=== PATIENT | female | born 1950 | race Caucasian/White ===

== ENCOUNTER 2017-05-19 | Inpatient (IN) | payer OTHER, MEDICARE ==
[2017-05-19] VITALS (7 sets, daily range): BP systolic 124–148; BP diastolic 58–71; PULSE 88–105; RESP 16–20; TEMP 95–99.9; O2SAT 96–99
[~2017-05-19] VITALS: Ht 172.7 cm; Wt 78.7 kg
[~2017-05-19] MED LIST: DEXTROSE 50% IN WATER 50 ML VIAL(D50) IV PUSH PRN; GLUCAGON 1 MG/ML VIAL OTHER PRN; HEPARIN-D5W 25,000 U/250 ML 250 ML IV PRN; METF500T PO; NALOXONE HCL 0.4 MG/ML AMP IV PUSH PRN; SODIUM CHLORIDE 0.9% FLUSH 10 ML FLUSH IV FLUSH PRN
[2017-05-19] MEDS ORDERED: HEPARIN 25,000 UNITS-D5W 250 ML - PREMIX IV SCH (01:00)
[2017-05-19] MEDS: LIDOCAINE VISCOUS 2% SOLN 15 ML UDC SWISH-SPIT PRN (06:20)
[2017-05-19 07:16] LABS: APTT (PATIENT) 55.3 SEC (24.3-30.1)
[2017-05-19 07:23] LABS: AUTOMATED NEUTROPHIL # 11.5 TH/MM3 (1.8-7.7); BASOPHIL # 0.1 TH/MM3 (0-0.2); BASOPHIL % 0.7 % (0.0-2.0); EOSINOPHIL # 0.1 TH/MM3 (0-0.4); EOSINOPHIL % 0.5 % (0.0-4.0); HEMATOCRIT 38.5 % (35.0-46.0); LYMPH % 19.3 % (9.0-44.0); LYMPHOCYTE # 3.1 TH/MM3 (1.0-4.8); MEAN CELL VOLUME 84.3 FL (80.0-100.0); MEAN CORPUSCULAR HEMOGLOBIN 27.6 PG (27.0-34.0); MEAN CORPUSCULAR HGB CONC 32.7 % (32.0-36.0); MONO % 9.2 % (0.0-8.0); NEUT % 70.3 % (16.0-70.0); PLATELET COUNT 159 TH/MM3 (150-450); RED BLOOD COUNT 4.57 MIL/MM3 (4.00-5.30); RED CELL DISTRIBUTION WIDTH 12.7 % (11.6-17.2); WHITE BLOOD COUNT 16.3 TH/MM3 (4.0-11.0)
[2017-05-19 07:24] LABS: HEMO FLAGS AUTO DIFF
[2017-05-19 07:35] LABS: BICARBONATE 24.4 MEQ/L (21.0-32.0); POTASSIUM 3.5 MEQ/L (3.5-5.1)
[2017-05-19 07:57] LABS: SCAN/DIFF AUTO DIFF CONFIRMED
[2017-05-19] MEDS: INSULIN ASPART SUPPLEMENTAL SCALE SQ SCH ×4 (08:00→21:00)
[2017-05-19] MEDS: SODIUM CHLORIDE 0.9% FLUSH 10 ML FLUSH IV FLUSH SCH ×2 (09:15→21:29)
--- NOTE | 2017-05-19 13:23 | HHI.HP ---
HPI Service [facility] Primary Care Physician Unknown Admission Diagnosis Diagnoses: (1) Sepsis Diagnosis: Principal (2) Hemoptysis Diagnosis: Principal (3) Bilateral pulmonary embolism Diagnosis: Principal (4) Strep pharyngitis Diagnosis: Principal (5) Leukocytosis Diagnosis: Principal (6) Diabetes Diagnosis: Secondary Chief Complaint: Coughing blood Travel History International Travel<30 Days: No Contact w/Intl Traveler <30 Da: No Traveled to Known Affected Are: No History of Present Illness Written by Saurabh Chong, acting as scribe for Dr. Valladares on 05/19/17 at 13: 15. 67-year-old female with known history of diabetes who presented to hospital because of hemoptysis. Patient states that over 4 weeks now she is being treated for strep throat in which she originally started with fever, chills. She was diagnosed with strep throat and started on amoxicillin. She finished full dose amoxicillin and did not get any better so her doctor started her on Cipro and she finished a week's course of that antibiotic. He completed that about a week ago. She has had a cough and during the night she coughed in the tissue in a garbage can. When she woke up in the morning she noticed that the tissue was covered in blood. Because of that reason she came to the ER for evaluation. Patient had workup done with CT scan of the chest which that show very small bilateral pulmonary emboli. She denies any shortness of breath, chest pain, dyspnea on exertion. She is asymptomatic for pulmonary emboli at this time. However she does have persistent strep pharyngitis with findings consistent with sepsis. Patient was started on heparin IV by ER physician and transferred to [place] for continued management. Review of Systems Constitutional: COMPLAINS OF: Fever, Chills Ears, nose, mouth, throat: COMPLAINS OF: Throat pain Respiratory: COMPLAINS OF: Cough, Hemoptysis Except as stated in HPI: all other systems reviewed are Neg Past Family Social History Past Medical History Diabetes Past Surgical History Partial hysterectomy Reported Medications Reported Meds & Active Scripts Active Reported Metformin (Metformin HCl) 500 Mg Tab 500 Mg PO DAILY With a meal Allergies: Coded Allergies: No Known Allergies (Unverified , 05/18/17) Family History Reviewed is significant for diabetes, enlarged heart. Social History Patient denies any tobacco, alcohol or illicit drugs Physical Exam Vital Signs Vital Signs Date Time Temp Pulse Resp B/P (MAP) Pulse Ox O2 Delivery O2 Flow Rate FiO2 05/19/17 08:00 97.8 98 16 124/63 (83) 97 05/19/17 04:00 99.2 95 20 136/71 (92) 97 05/19/17 00:37 99.9 105 20 148/69 (95) 99 05/19/17 00:36 101 Physical Exam GENERAL: Well-developed, well-nourished, in no acute distress. alert and orientated HEENT: Head is normocephalic without any lesions or masses noted. Facial features are symmetric. Eyes: Pupils equal round reactive to light. Extraocular muscles are intact. Conjunctivae were clear. Oropharyngeal: Posterior pharynx does have bilateral erythema with cryptic exudates noted mainly on the left. NECK: Supple with anterior cervical chain lymphadenopathy CARDIAC: Regular rhythm, regular rate. S1/S2 are heard. No murmurs gallops or rubs. LUNGS: Clear to auscultation bilaterally. No wheeze, rhonchi or rales. No use of accessory muscles on inspiration or expiration. ABDOMEN: Soft, nontender. Nondistended. Bowel sounds heard in all 4 quadrants. No organomegaly or masses. Negative rebound, negative guarding EXTREMITIES: No edema, pulses are equal bilaterally. No cyanosis or clubbing NEUROLOGY: Mood and affect appear appropriate. Cranial nerves II through XII grossly intact. Muscle strength 5/5 in upper and lower extremities bilaterally. Deep tendon reflexes are 2+ in upper and lower extremities bilaterally. Laboratory Laboratory Tests Test 05/19/17 05:17 White Blood Count 16.3 Red Blood Count 4.57 Hemoglobin 12.6 Hematocrit 38.5 Mean Corpuscular Volume 84.3 Mean Corpuscular Hemoglobin 27.6 Mean Corpuscular Hemoglobin Concent 32.7 Red Cell Distribution Width 12.7 Platelet Count 159 Mean Platelet Volume 10.2 Neutrophils (%) (Auto) 70.3 Lymphocytes (%) (Auto) 19.3 Monocytes (%) (Auto) 9.2 Eosinophils (%) (Auto) 0.5 Basophils (%) (Auto) 0.7 Neutrophils # (Auto) 11.5 Lymphocytes # (Auto) 3.1 Monocytes # (Auto) 1.5 Eosinophils # (Auto) 0.1 Basophils # (Auto) 0.1 CBC Comment AUTO DIFF Differential Comment AUTO DIFF CONFIRMED Activated Partial Thromboplast Time 55.3 Blood Urea Nitrogen 11 Creatinine 0.49 Random Glucose 120 Calcium Level 9.3 Sodium Level 132 Potassium Level 3.5 Chloride Level 96 Carbon Dioxide Level 24.4 Anion Gap 12 Estimat Glomerular Filtration Rate 126 Date/Time Source Procedure Growth Status 05/19/17 06:08 Throat Group A Streptococcus Screen ([facility]) - Final Pos For Grp A Strep Antigen Complete Result Diagram: 05/19/1751605/19/17516 Septic Shock Reassessment Heart: Regular rate and rhythm Lungs: Clear Skin: Warm, Pelzer Peripheral Pulses: Bounding Right Radial Bounding Left Radial Capillary Refill: Brisk, <2 seconds Caprini VTE Risk Assessment Caprini VTE Risk Assessment: Mod/High Risk (score >= 2) Caprini Risk Assessment Model Point Value = 1 Point Value = 2 Point Value = 3 Point Value = 5 Age 41-60 Minor surgery BMI > 25 kg/m2 Swollen legs Varicose veins or History of unexplained or recurrent spontaneous Oral contraceptives or hormone replacement Sepsis (< 1 month) Serious lung disease, including pneumonia (< 1 month) Abnormal pulmonary function Acute myocardial infarction Congestive heart failure (< 1 month) History of inflammatory bowel disease Medical patient at bed rest Age 61-74 Arthroscopic surgery Major open surgery (> 45 min) Laparoscopic surgery (> 45 min) Malignancy Confined to bed (> 72 hours) Immobilizing plaster cast Central venous access Age >= 75 History of VTE Family history of VTE Factor V Leiden Prothrombin [id number] Lupus anticoagulant Anticardiolipin antibodies Elevated serum homocysteine Heparin-induced thrombocytopenia Other congenital or acquired thrombophilia Stroke (< 1 month) Elective arthroplasty Hip, pelvis, or leg fracture Acute spinal cord injury (< 1 month) Prophylaxis Regimen Total Risk Factor Score Risk Level Prophylaxis Regimen 0-1 Low Early ambulation 2 Moderate Order ONE of the following: *Sequential Compression Device (SCD) *Heparin 5000 units SQ BID 3-4 Higher Order ONE of the following medications: *Heparin 5000 units SQ TID *Enoxaparin/Lovenox 40 mg SQ daily (WT < 150 kg, CrCl > 30 mL/min) *Enoxaparin/Lovenox 30 mg SQ daily (WT < 150 kg, CrCl > 10-29 mL/min) *Enoxaparin/Lovenox 30 mg SQ BID (WT < 150 kg, CrCl > 30 mL/min) AND/OR *Sequential Compression Device (SCD) 5 or more Highest Order ONE of the following medications: *Heparin 5000 units SQ TID (Preferred with Epidurals) *Enoxaparin/Lovenox 40 mg SQ daily (WT < 150 kg, CrCl > 30 mL/min) *Enoxaparin/Lovenox 30 mg SQ daily (WT < 150 kg, CrCl > 10-29 mL/min) *Enoxaparin/Lovenox 30 mg SQ BID (WT < 150 kg, CrCl > 30 mL/min) AND *Sequential Compression Device (SCD) Assessment and Plan Assessment and Plan Sepsis Patient meets criteria with leukocytosis, tachycardia, strep pharyngitis Patient started on Ancef, patient does have history of recent amoxicillin use and Cipro with persistent strep pharyngitis. Patient will need IV medications this time due to failed oral medication to prevent life-threatening complications from strep pharyngitis. Bilateral small pulmonary emboli with presenting hemoptysis Patient continued on heparin IV Anticipate conversion to Eliquis, Xarelto or Coumadin tomorrow Diabetes Accu-Cheks with sliding scale insulin DVT prevention Patient on heparin IV This note was transcribed by yousuf NORRIS. I, Dr. Shannan Valladares personally performed the history, physical exam, and medical decision making; and confirmed the accuracy of the information in the transcribed note. Authenticated by Dr. Shannna Valladares on 05/19/17 at 13:15. Physician Certification 2 Midnight Certification Type: Admission for Inpatient Services Order for Inpatient Services The services are ordered in accordance with Medicare regulations or non- Medicare payer requirements, as applicable. In the case of services not specified as inpatient-only, they are appropriately provided as inpatient services in accordance with the 2-midnight benchmark. Estimated LOS (days): 2 days is the estimated time the patient will need to remain in the hospital, assuming treatment plan goals are met and no additional complications. Post-Hospital Plan: Not yet determined Problem Qualifiers (1) Diabetes: Qualified Codes: E11.8 - Type 2 diabetes mellitus with unspecified complications Saurabh Chong May 19, 2017 13:23 Shannan Valladares MD May 19, 2017 18:25
[2017-05-19] MEDS: ceFAZolin 2 GM PREMIX 50 ML IV SCH ×2 (14:57→21:28)
[2017-05-19 17:11] LABS: APTT (PATIENT) 44.6 SEC (24.3-30.1)
[2017-05-20] VITALS (8 sets, daily range): BP systolic 107–146; BP diastolic 58–70; PULSE 72–92; RESP 13–21; TEMP 93.3–99.4; O2SAT 97–99
[2017-05-20] MEDS: LIDOCAINE VISCOUS 2% SOLN 15 ML UDC SWISH-SPIT PRN (05:25)
[2017-05-20] MEDS: ceFAZolin 2 GM PREMIX 50 ML IV SCH ×3 (05:25→20:46)
[2017-05-20 06:04] LABS: APTT (PATIENT) 47.6 SEC (24.3-30.1)
[2017-05-20 08:41] LABS: POTASSIUM 3.6 MEQ/L (3.5-5.1)
[2017-05-20 08:44] LABS: BICARBONATE 26.6 MEQ/L (21.0-32.0); MAGNESIUM 2.3 MG/DL (1.5-2.5)
[2017-05-20 08:49] LABS: AUTOMATED NEUTROPHIL # 5.2 TH/MM3 (1.8-7.7); BASOPHIL # 0.1 TH/MM3 (0-0.2); EOSINOPHIL # 0.2 TH/MM3 (0-0.4); EOSINOPHIL % 2.1 % (0.0-4.0); HEMATOCRIT 37.6 % (35.0-46.0); HEMO FLAGS DIFF FINAL; LYMPH % 30.6 % (9.0-44.0); LYMPHOCYTE # 2.8 TH/MM3 (1.0-4.8); MEAN CELL VOLUME 83.7 FL (80.0-100.0); MEAN CORPUSCULAR HEMOGLOBIN 27.9 PG (27.0-34.0); MEAN CORPUSCULAR HGB CONC 33.4 % (32.0-36.0); MONO % 10.9 % (0.0-8.0); NEUT % 55.4 % (16.0-70.0); PLATELET COUNT 196 TH/MM3 (150-450); RED BLOOD COUNT 4.49 MIL/MM3 (4.00-5.30); RED CELL DISTRIBUTION WIDTH 11.9 % (11.6-17.2); WHITE BLOOD COUNT 9.3 TH/MM3 (4.0-11.0)
--- NOTE | 2017-05-20 09:15 | HHI.PR ---
Subjective Remarks In bed, says she has sore throat, able to eat some food. No fever or chills. No sob, fever, chest pain . Feels tired. Improved since yesterday. No n/v/d/c. Objective Vitals Vital Signs Date Time Temp Pulse Resp B/P (MAP) Pulse Ox O2 Delivery O2 Flow Rate FiO2 05/20/17 04:00 97.3 81 18 116/63 (80) 97 05/20/17 00:00 99.4 92 20 107/58 (74) 98 05/19/17 21:00 89 05/19/17 20:00 98.2 88 20 147/70 (95) 97 05/19/17 16:00 95.0 91 130/58 (82) 96 I/O 05/19/17 05/19/17 05/19/17 05/20/17 05/20/17 05/20/17 07:00 15:00 23:00 07:00 15:00 23:00 Intake Total 720 ml 294 ml Output Total 550 ml Balance 720 ml -550 ml 294 ml Intake Oral 720 ml IV Total 294 ml Output Urine Total 550 ml # Voids 2 Result Diagram: 05/20/17 0745 05/20/17 0745 Objective Remarks GENERAL: Well-developed, well-nourished, in no acute distress. alert and orientated HEENT: Oropharyngeal: Posterior pharynx does have bilateral erythema with cryptic exudates noted mainly on the left. Oral thrush. NECK: Supple with anterior cervical chain lymphadenopathy CARDIAC: Regular rhythm, regular rate. S1/S2 are heard. No murmurs gallops or rubs. LUNGS: Clear to auscultation bilaterally. No wheeze, rhonchi or rales. No use of accessory muscles on inspiration or expiration. ABDOMEN: Soft, nontender. Nondistended. Bowel sounds heard in all 4 quadrants. No organomegaly or masses. Negative rebound, negative guarding EXTREMITIES: No edema, pulses are equal bilaterally. No cyanosis or clubbing NEUROLOGY: Mood and affect appear appropriate. Cranial nerves II through XII grossly intact. Muscle strength 5/5 in upper and lower extremities bilaterally. A/P Problem List: (1) Sepsis ICD Code: A41.9 - Sepsis, unspecified organism (2) Hemoptysis ICD Code: R04.2 - Hemoptysis (3) Bilateral pulmonary embolism ICD Code: I26.99 - Other pulmonary embolism without acute cor pulmonale (4) Strep pharyngitis ICD Code: J02.0 - Streptococcal pharyngitis (5) Leukocytosis ICD Code: D72.829 - Elevated white blood cell count, unspecified (6) Diabetes ICD Code: E11.9 - Type 2 diabetes mellitus without complications Assessment and Plan Sepsis- improving Patient meets criteria with leukocytosis, tachycardia, strep pharyngitis on admission. Patient started on Ancef, patient does have history of recent amoxicillin use and Cipro with persistent strep pharyngitis. Patient will need IV medications this time due to failed oral medication to prevent life-threatening complications from strep pharyngitis. Oral thrush: nystatin swish Bilateral small pulmonary emboli with presenting hemoptysis Patient continued on heparin IV Anticipate conversion to Eliquis, Xarelto or Coumadin tomorrow Diabetes Accu-Cheks with sliding scale insulin DVT prevention Patient on heparin IV Discussed with the patient, nurse. DC plan: pending improvement. Problem Qualifiers (1) Diabetes: Qualified Codes: E11.8 - Type 2 diabetes mellitus with unspecified complications Shannan Valladares MD May 20, 2017 09:15
[2017-05-20] MEDS: ACETAMINOPHEN 325 MG TAB PO PRN ×2 (09:31→22:04)
[2017-05-20] MEDS: SODIUM CHLORIDE 0.9% FLUSH 10 ML FLUSH IV FLUSH SCH ×2 (09:32→20:57)
[2017-05-20] MEDS: INSULIN ASPART SUPPLEMENTAL SCALE SQ SCH ×4 (09:33→20:56)
[2017-05-20] MEDS: NYSTATIN SUSP 500,000 U/5 ML CUP SWISH-SWAL SCH ×2 (17:30→20:46)
[2017-05-20] MEDS ORDERED: ACETAMINOPHEN/HYDROcodone 325 MG/5 MG TAB PO ONE (23:30)
--- NOTE | 2017-05-21 00:45 | RADRPT ---
EXAM DATE/TIME: 05/21/2017 00:20 [place] COMPARISON: No previous studies available for comparison. INDICATIONS : Patient on Heparin. Severe headache. RADIATION DOSE: 59.09 CTDIvol (mGy) MEDICAL HISTORY : Diabetes mellitus type 2. Pulmonary emboli SURGICAL HISTORY : None. ENCOUNTER: Initial ACUITY: 1 day PAIN SCALE: 10/10 LOCATION: cranial TECHNIQUE: Multiple contiguous axial images were obtained of the head. Using automated exposure control and adj ustment of the mA and/or kV according to patient size, radiation dose was kept as low as reasonably a chievable to obtain optimal diagnostic quality images. DICOM format image data is available electro nically for review and comparison. FINDINGS: CEREBRUM: The ventricles are normal for age. No evidence of midline shift, mass lesion, hemorrhage or acute in farction. No extra-axial fluid collections are seen. POSTERIOR FOSSA: The cerebellum and brainstem are intact. The 4th ventricle is midline. The cerebellopontine angle i s unremarkable. EXTRACRANIAL: The visualized portion of the orbits is intact. SKULL: The calvaria is intact. No evidence of skull fracture. CONCLUSION: Normal examination. Xavier Barillas MD on May 21, 2017 at 0:42 Board Certified Radiologist. This report was verified electronically.
[2017-05-21 04:00] VITALS: BP 110/61; PULSE 80; RESP 20; TEMP 97.1; O2SAT 98
[2017-05-21] MEDS: ceFAZolin 2 GM PREMIX 50 ML IV SCH ×2 (05:53→14:45)
[2017-05-21 06:46] LABS: HEMATOCRIT 36.8 % (35.0-46.0); MEAN CELL VOLUME 83.6 FL (80.0-100.0); MEAN CORPUSCULAR HGB CONC 33.5 % (32.0-36.0); PLATELET COUNT 198 TH/MM3 (150-450); RED CELL DISTRIBUTION WIDTH 11.9 % (11.6-17.2); REVIEW FLAG FINAL; WHITE BLOOD COUNT 8.6 TH/MM3 (4.0-11.0)
[2017-05-21 06:56] LABS: POTASSIUM 3.6 MEQ/L (3.5-5.1)
[2017-05-21 07:00] LABS: BICARBONATE 26.2 MEQ/L (21.0-32.0)
[2017-05-21 07:49] LABS: APTT (PATIENT) 49.5 SEC (24.3-30.1)
[2017-05-21] MEDS: INSULIN ASPART SUPPLEMENTAL SCALE SQ SCH ×2 (08:00→12:17)
[2017-05-21 08:35] VITALS: BP 130/59; PULSE 69; RESP 18; TEMP 97.9; O2SAT 98
[2017-05-21 08:50] VITALS: PULSE 69
[2017-05-21] MEDS: SODIUM CHLORIDE 0.9% FLUSH 10 ML FLUSH IV FLUSH SCH (08:50)
[2017-05-21] MEDS: NYSTATIN SUSP 500,000 U/5 ML CUP SWISH-SWAL SCH ×3 (08:50→17:11)
--- NOTE | 2017-05-21 10:09 | HHI.PR ---
Subjective Remarks Feels better no hemoptysis, no cough. Sore throat improved. No sob. Ambulates. No fever or chills. Oral thrush Improved significantly. Comfortable to go home Objective Vitals Vital Signs Date Time Temp Pulse Resp B/P (MAP) Pulse Ox O2 Delivery O2 Flow Rate FiO2 05/21/17 08:35 97.9 69 18 130/59 (82) 98 05/21/17 04:00 97.1 80 20 110/61 (77) 98 05/20/17 23:45 98.2 72 20 125/61 (82) 99 05/20/17 23:04 16 05/20/17 20:00 97.9 77 18 136/70 (92) 97 05/20/17 20:00 78 05/20/17 16:00 93.7 80 13 139/67 (91) 98 05/20/17 12:00 93.3 14 146/62 (90) I/O 05/20/17 05/20/17 05/20/17 05/21/17 05/21/17 05/21/17 06:59 14:59 22:59 06:59 14:59 22:59 Intake Total 294 ml 295 ml 644 ml 434 ml Balance 294 ml 295 ml 644 ml 434 ml Intake Oral 480 ml 240 ml IV Total 294 ml 295 ml 164 ml 194 ml # Voids 6 2 # Bowel Movements 0 0 Result Diagram: 05/21/17 0620 05/21/17 0620 Imaging Last Impressions Head CT 05/20/17 0000 Signed Impressions: Service Date/Time: Sunday, May 21, 2017 00:20 - CONCLUSION: Normal examination. Xavier Barillas MD Objective Remarks GENERAL: Well-developed, well-nourished, in no acute distress. alert and orientated HEENT: Oropharyngeal: Posterior pharynx does have bilateral erythema with cryptic exudates noted mainly on the left. Oral thrush. NECK: Supple with anterior cervical chain lymphadenopathy CARDIAC: Regular rhythm, regular rate. S1/S2 are heard. No murmurs gallops or rubs. LUNGS: Clear to auscultation bilaterally. No wheeze, rhonchi or rales. No use of accessory muscles on inspiration or expiration. ABDOMEN: Soft, nontender. Nondistended. Bowel sounds heard in all 4 quadrants. No organomegaly or masses. Negative rebound, negative guarding EXTREMITIES: No edema, pulses are equal bilaterally. No cyanosis or clubbing NEUROLOGY: Mood and affect appear appropriate. Cranial nerves II through XII grossly intact. Muscle strength 5/5 in upper and lower extremities bilaterally. A/P Problem List: (1) Sepsis ICD Code: A41.9 - Sepsis, unspecified organism (2) Hemoptysis ICD Code: R04.2 - Hemoptysis (3) Bilateral pulmonary embolism ICD Code: I26.99 - Other pulmonary embolism without acute cor pulmonale (4) Strep pharyngitis ICD Code: J02.0 - Streptococcal pharyngitis (5) Leukocytosis ICD Code: D72.829 - Elevated white blood cell count, unspecified (6) Diabetes ICD Code: E11.9 - Type 2 diabetes mellitus without complications Assessment and Plan Sepsis- improving Patient meets criteria with leukocytosis, tachycardia, strep pharyngitis on admission. Patient started on Ancef, patient does have history of recent amoxicillin use and Cipro with persistent strep pharyngitis. Patient will need IV medications this time due to failed oral medication to prevent life-threatening complications from strep pharyngitis. Oral thrush: improved with nystatin swish Bilateral small pulmonary emboli with presenting hemoptysis Patient continued on heparin IV Will give Xarelto at DC, case manageembt for coupon Diabetes Accu-Cheks with sliding scale insulin. Continue metformin at home DVT prevention Patient on heparin IV Discussed with the patient, nurse. DC plan: Dc home in stable condition to follow up as OP with PcP and consultants Problem Qualifiers (1) Diabetes: Qualified Codes: E11.8 - Type 2 diabetes mellitus with unspecified complications Shannan Valladares MD May 21, 2017 10:09
[2017-05-21] MEDS ORDERED: AUGM875T3 PO (10:11)
[2017-05-21] MEDS ORDERED: PENI500T PO (10:14)
[2017-05-21] MEDS ORDERED: LACTCHW3 CHEW (10:14)
[2017-05-21] MEDS ORDERED: NYST1000 SWISH-SWAL ×2 (10:18→11:07)
--- NOTE | 2017-05-21 10:23 | HHI.DS ---
Discharge Summary Admission Date May 19, 2017 at 00:10 Discharge Date: May 21, 2017 Admitting Diagnosis (1) Sepsis ICD Code: A41.9 - Sepsis, unspecified organism Diagnosis: Principal (2) Hemoptysis ICD Code: R04.2 - Hemoptysis Diagnosis: Principal (3) Bilateral pulmonary embolism ICD Code: I26.99 - Other pulmonary embolism without acute cor pulmonale Diagnosis: Principal (4) Strep pharyngitis ICD Code: J02.0 - Streptococcal pharyngitis Diagnosis: Principal (5) Leukocytosis ICD Code: D72.829 - Elevated white blood cell count, unspecified Diagnosis: Principal (6) Diabetes ICD Code: E11.9 - Type 2 diabetes mellitus without complications Diagnosis: Secondary Procedures none Brief History - From Admission Written by Saurabh Chong, acting as scribe for Dr. Valladares on 05/19/17 at 13: 15. 67-year-old female with known history of diabetes who presented to hospital because of hemoptysis. Patient states that over 4 weeks now she is being treated for strep throat in which she originally started with fever, chills. She was diagnosed with strep throat and started on amoxicillin. She finished full dose amoxicillin and did not get any better so her doctor started her on Cipro and she finished a week's course of that antibiotic. He completed that about a week ago. She has had a cough and during the night she coughed in the tissue in a garbage can. When she woke up in the morning she noticed that the tissue was covered in blood. Because of that reason she came to the ER for evaluation. Patient had workup done with CT scan of the chest which that show very small bilateral pulmonary emboli. She denies any shortness of breath, chest pain, dyspnea on exertion. She is asymptomatic for pulmonary emboli at this time. However she does have persistent strep pharyngitis with findings consistent with sepsis. Patient was started on heparin IV by ER physician and transferred to [place] for continued management. CBC/BMP: 05/21/17 0620 05/21/17 0620 Significant Findings Laboratory Tests Test 05/19/17 05:17 05/19/17 16:50 05/20/17 05:17 05/20/17 07:45 White Blood Count 16.3 TH/MM3 (4.0-11.0) Neutrophils (%) (Auto) 70.3 % (16.0-70.0) Monocytes (%) (Auto) 9.2 % (0.0-8.0) 10.9 % (0.0-8.0) Neutrophils # (Auto) 11.5 TH/MM3 (1.8-7.7) Monocytes # (Auto) 1.5 TH/MM3 (0-0.9) 1.0 TH/MM3 (0-0.9) Activated Partial Thromboplast Time 55.3 SEC (24.3-30.1) 44.6 SEC (24.3-30.1) 47.6 SEC (24.3-30.1) Creatinine 0.49 MG/DL (0.50-1.00) Random Glucose 120 MG/DL (74-106) 136 MG/DL (74-106) Sodium Level 132 MEQ/L (136-145) 135 MEQ/L (136-145) Chloride Level 96 MEQ/L (98-107) Test 05/21/17 06:20 05/21/17 07:30 Random Glucose 134 MG/DL (74-106) Activated Partial Thromboplast Time 49.5 SEC (24.3-30.1) Imaging Last Impressions Head CT 05/20/17 0000 Signed Impressions: Service Date/Time: Sunday, May 21, 2017 00:20 - CONCLUSION: Normal examination. Xavier Barillas MD PE at Discharge GENERAL: Well-developed, well-nourished, in no acute distress. alert and orientated HEENT: Oropharyngeal: Posterior pharynx does have bilateral erythema with cryptic exudates noted mainly on the left. Oral thrush. NECK: Supple with anterior cervical chain lymphadenopathy CARDIAC: Regular rhythm, regular rate. S1/S2 are heard. No murmurs gallops or rubs. LUNGS: Clear to auscultation bilaterally. No wheeze, rhonchi or rales. No use of accessory muscles on inspiration or expiration. ABDOMEN: Soft, nontender. Nondistended. Bowel sounds heard in all 4 quadrants. No organomegaly or masses. Negative rebound, negative guarding EXTREMITIES: No edema, pulses are equal bilaterally. No cyanosis or clubbing NEUROLOGY: Mood and affect appear appropriate. Cranial nerves II through XII grossly intact. Muscle strength 5/5 in upper and lower extremities bilaterally. Hospital Course 67-year-old female with known history of diabetes who presented to hospital because of hemoptysis. Patient states that over 4 weeks now she is being treated for strep throat in which she originally started with fever, chills. She was diagnosed with strep throat and started on amoxicillin. She finished full dose amoxicillin and did not get any better so her doctor started her on Cipro and she finished a week's course of that antibiotic. He completed that about a week ago. She has had a cough and during the night she coughed in the tissue in a garbage can. When she woke up in the morning she noticed that the tissue was covered in blood. Because of that reason she came to the ER for evaluation. Patient had workup done with CT scan of the chest which that show very small bilateral pulmonary emboli. She denies any shortness of breath, chest pain, dyspnea on exertion. She is asymptomatic for pulmonary emboli at this time. However she does have persistent strep pharyngitis with findings consistent with sepsis. Patient was started on heparin IV by ER physician and transferred to [place] for continued management. Patient was treated with IV antibiotic Ancef, sepsis resolved. No more hemoptysis, will have Xarelto at discharge. Patient also with oral thrush received nystatin improved. Patinet impropved faster than expected. She was discharged home in stable condition to follow up as OP with PCP and consultants. Sepsis- improved and resolved Patient meets criteria with leukocytosis, tachycardia, strep pharyngitis on admission. Patient started on Ancef, patient does have history of recent amoxicillin use and Cipro with persistent strep pharyngitis. Patient will need IV medications this time due to failed oral medication to prevent life-threatening complications from strep pharyngitis. Oral thrush: improved with nystatin swish Bilateral small pulmonary emboli with presenting hemoptysis Patient continued on heparin IV Will give Xarelto at CT, case manageembt for coupon Diabetes Accu-Cheks with sliding scale insulin. Continue metformin at home DVT prevention Patient on heparin IV Discussed with the patient, nurse. DC plan: [place] home in stable condition to follow up as OP with PCP and consultants Pt Condition on Discharge: Stable Discharge Disposition: Discharge Home Discharge Time: > 30 minutes Discharge Instructions DIET: Follow Instructions for: Diabetic Diet Activities you can perform: Regular-No Restrictions Follow up Referrals: PCP Follow-up - 2-3 Days New Medications: Lactobacillus Acidophilus (Lactinex) 1 Chew 1 TAB CHEW DAILY for Nutritional Supplement for 30 Days, #30 TAB 0 Refills Penicillin V Potassium (Penicillin V Potassium) 500 Mg Tab 500 MG PO Q12HR for Infection, #20 TAB 0 Refills Rivaroxaban (Xarelto) 15 Mg Tab 15 MG PO Q12HR for Blood Clot Prevention for 21 Days, TAB 0 Refills Rivaroxaban (Xarelto) 20 Mg Tab 20 MG PO DAILY for Blood Clot Prevention for 90 Days, #90 TAB 0 Refills Nystatin Liq (Nystatin Liq) 100,000 unit/ml Susp 5 ML SWISH-SWAL QID for oral thrush, #120 ML Continued Medications: Metformin (Metformin) 500 Mg Tab 500 MG PO DAILY for Blood Sugar Management, TAB 0 Refills With a meal Shannan Valladares MD May 21, 2017 10:23
[2017-05-21] MEDS ORDERED: XARE20TA PO (11:05)
[2017-05-21] MEDS ORDERED: XARE15TA PO (11:05)
[2017-05-21 15:46] VITALS: BP 126/56; PULSE 76; RESP 18; TEMP 98; O2SAT 100
== END 2017-05-21 17:16 | disposition home or self-care (01) | DRG 871 ==
LOC: PHEDDLT → PH3B 00:10 → PH5A 10:50
PROVIDERS: ADMIT Hospitalist; ATTEND Hospitalist
DX: A40.0 Sepsis due to streptococcus, group A (principal); I26.99 Other pulmonary embolism without acute cor pulmonale; R04.2 Hemoptysis; B37.0 Candidal stomatitis; E11.9 Type 2 diabetes mellitus without complications; J02.0 Streptococcal pharyngitis; Z79.01 Long term (current) use of anticoagulants; Z79.84 Long term (current) use of oral hypoglycemic drugs
CPT/HCPCS: 70450; 71275; 80048; 80053; 82948; 83735; 85025; 85027; 85610; 85730; 87081; 87880; J0690; J1644; J1815; Q9967